=== PATIENT | male | born 1970 | race Two or more races ===

== ENCOUNTER 2024-03-26 09:01 | Emergency (ER) | payer MEDICAID ==
[~2024-03-26] VITALS: Ht 172.7 cm; Wt 70.0 kg
[2024-03-26 09:07] VITALS: TEMP 98.3; O2SAT 100
[2024-03-26 09:45] VITALS: BP 149/99; PULSE 87; RESP 16; O2SAT 95
[2024-03-26] MEDS ORDERED: METO25TA6 MT (09:49)
== END 2024-03-26 13:38 | disposition home or self-care (01) ==
LOC: ER 09:01
DX: I10 Essential (primary) hypertension (principal); Z96.649 Presence of unspecified artificial hip joint
CPT/HCPCS: 71045; 93005; 99283